=== PATIENT | female | born 1960 | race Caucasian/White ===

== ENCOUNTER 2016-09-29 12:50 | Inpatient (IN) | payer OTHER ==
[~2016-09-29] VITALS: Ht 160 cm; Wt 63.5 kg
[2016-09-29] MEDS ORDERED: LORAZEPAM 0.5 MG TABLET PO ONE (13:00)
[2016-09-29] MEDS ORDERED: DIAZ10TA PO (13:03)
--- NOTE | 2016-09-29 13:13 | NUR ---
Datapower Developer assumes care, hands off report from ROYER [place] & lost charge card clerk Grace. Lab tank crewmember is at bedside drawing blood at this time.
[2016-09-29] MEDS ORDERED: LORAZEPAM 1 MG TABLET ONE (13:16)
[2016-09-29 13:23] LABS: BASOPHILS # (AUTO) 0.1 K/uL (0.0-0.2); BASOPHILS % (AUTO) 0.5 % (0.0-2.0); EOSINOPHILS # (AUTO) 0.4 K/uL (0.0-0.7); EOSINOPHILS % (AUTO) 3.3 % (0.0-7.0); HEMATOCRIT 41.7 % (37.0-47.0); HEMOGLOBIN 14.4 g/dL (12.0-16.0); LYMPHOCYTES % (AUTO) 25.1 % (20.5-51.5); MEAN CORPUSCULAR HEMOGLOBIN 30.9 uug (27.0-31.0); MEAN CORPUSCULAR HGB CONC 35 g/dL (32.0-37.0); MEAN CORPUSCULAR VOLUME 89.3 fL (81.0-99.0); MONOCYTES # (AUTO) 0.7 K/uL (0.1-1.30); MONOCYTES % (AUTO) 5.8 % (0.0-11.0); NEUTROPHILS # (AUTO) 7.9 K/uL (1.8-8.9); NEUTROPHILS % (AUTO) 65.3 % (38.5-71.5); PLATELET COUNT (AUTO) 222 K/uL (150-450); RED BLOOD CELL COUNT(AUTO) 4.67 MIL/uL (4.20-5.40); RED CELL DISTRIBUTION WIDTH 12.9 % (11.5-14.5); WHITE BLOOD COUNT (AUTO) 12.1 K/uL (4.0-11.2)
[2016-09-29 13:28] LABS: CALCIUM 8.9 mg/dL (8.5-10.1); CREATININE 0.8 mg/dL (0.6-1.3); POTASSIUM 3.6 mmol/L (3.5-5.1)
--- NOTE | 2016-09-29 13:57 | NUR ---
Patient is resting comfortably on gurney while using her personal electronic device, [employer]. PATIENT IS PAIN FREE AT THIS TIME.
[2016-09-29 15:00] VITALS: BP 132/91
--- NOTE | 2016-09-29 15:00 | NUR ---
John LAROSE WAS INFORM OF PATIENT ADMISSION AND ORDER IN CHART
[2016-09-29] MEDS ORDERED: ONDANSETRON 4 MG/2 ML VIAL IV PRN (16:15)
[2016-09-29] MEDS ORDERED: NITROGLYCERIN 0.3 MG/TAB BOTTLE SL PRN (16:15)
[2016-09-29] MEDS ORDERED: MAGNESIUM HYDROXIDE 30 ML LIQUID UDC PO PRN (16:15)
[2016-09-29] MEDS ORDERED: TEMAZEPAM 15 MG CAPSULE PO PRN (16:15)
[2016-09-29] MEDS ORDERED: ACETAMINOPHEN 650 MG SUPP.RECT RC PRN (16:15)
--- NOTE | 2016-09-29 18:00 | NUR ---
RESTING HEMODYNAMIC STATUS STABLE NO SOB OR CHEST PAIN CALL THOMAS IN REACH NO SEIZURE
[2016-09-29 19:00] VITALS: BP 127/78
[2016-09-29] MEDS ORDERED: DIAZEPAM 10 MG TABLET PO SCH (21:00)
[2016-09-29] MEDS ORDERED: DIAZEPAM 10 MG TABLET PO PRN (21:00)
[2016-09-29] MEDS: HYDROCODONE/APAP 5-325MG TABLET PO PRN (23:46)
[2016-09-30] VITALS: BP 122/90
[2016-09-30 04:00] VITALS: BP 113/82
[2016-09-30] MEDS: HYDROCODONE/APAP 5-325MG TABLET PO PRN (04:00)
[2016-09-30 06:49] LABS: BASOPHILS % (AUTO) 0.7 % (0.0-2.0); EOSINOPHILS # (AUTO) 0.6 K/uL (0.0-0.7); EOSINOPHILS % (AUTO) 8.3 % (0.0-7.0); HEMATOCRIT 42.1 % (37.0-47.0); HEMOGLOBIN 14.1 g/dL (12.0-16.0); LYMPHOCYTES # (AUTO) 3.5 K/uL (0.8-4.8); LYMPHOCYTES % (AUTO) 53.1 % (20.5-51.5); MEAN CORPUSCULAR HEMOGLOBIN 30.3 uug (27.0-31.0); MEAN CORPUSCULAR HGB CONC 33 g/dL (32.0-37.0); MEAN CORPUSCULAR VOLUME 90.6 fL (81.0-99.0); MONOCYTES # (AUTO) 0.6 K/uL (0.1-1.30); MONOCYTES % (AUTO) 8.6 % (0.0-11.0); NEUTROPHILS % (AUTO) 29.3 % (38.5-71.5); PLATELET COUNT (AUTO) 228 K/uL (150-450); RED BLOOD CELL COUNT(AUTO) 4.64 MIL/uL (4.20-5.40); WHITE BLOOD COUNT (AUTO) 6.7 K/uL (4.0-11.2)
[2016-09-30] MEDS ORDERED: PANTOPRAZOLE SODIUM 40 MG TABLET.DR PO SCH (07:00)
--- NOTE | 2016-09-30 07:02 | NUR ---
PATIENT RECEIVED IN ROOM ALERT AWAKE IN NO ACUTE DISTRESS. SR ON CLINIQUE COUNTER MANAGER. RESPIRATIONS EVEN AND UNLABORED. FALL PRECAUTIONS IN PLACE.
--- NOTE | 2016-09-30 07:02 | NUR ---
PATIENT NOTED IN STABLE CONDITION.PATIENT NOTED RESTING AT THIS TIME ,NO FURTHER COMPLAIN OF PAIN NOTED.
[2016-09-30 07:06] LABS: ALBUMIN 3.5 g/dL (3.4-5.0); BILIRUBIN,TOTAL 0.5 mg/dL (0.2-1.0); CALCIUM 8.9 mg/dL (8.5-10.1); CREATININE 0.9 mg/dL (0.6-1.3); MAGNESIUM 1.8 mg/dL (1.8-2.4); POTASSIUM 4.3 mmol/L (3.5-5.1); TOTAL PROTEIN, SERUM 6.8 g/dL (6.4-8.2)
[2016-09-30 07:33] LABS: THYROID STIMULATING HORMONE 3.211 mIU/mL (0.358-3.740)
[2016-09-30] MEDS ORDERED: ASPIRIN 81 MG TAB.CHEW PO SCH (09:00)
--- NOTE | 2016-09-30 10:20 | NUR ---
PATIENT LEAVING AMA. STATES SHE IS FEELING MUCH BETTER AND SHE CAN JUST GO TO HER SPECIAL TESTER INSTEAD. DR. WILSON NOTIFIED, STATES HE WILL BE HERE SOON TO SEE THE PATIENT. PATIENT NOTIFIED AND PATIENT REFUSED TO WAIT FOR THE DR. DISCHARGE INSTRUCTIONS PROVIDED. LIST OF BELONGINGS SIGNED AND ALL WAS TAKEN. PATIENT LEFT VIA PRIVATE CAR ACCOMPANIED BY .
== END 2016-09-30 10:20 | disposition left against medical advice (07) | DRG 880 ==
LOC: ER 12:50 → TELE 14:10
PROVIDERS: ADMIT Internal Medicine; ATTEND Internal Medicine
DX: F41.9 Anxiety disorder, unspecified (principal); R51 Headache; D72.829 Elevated white blood cell count, unspecified; R00.2 Palpitations
CPT/HCPCS: 36415; 70030-TC; 71010; 83735; 84100; 84443; 85025; 85730; 93005; A4663